=== PATIENT | male | born 1970 | race Two or more races ===

== ENCOUNTER 2017-03-02 17:41 | Emergency (ER) | payer OTHER ==
[~2017-03-02] VITALS: Ht 172.7 cm; Wt 102.5 kg
[~2017-03-02 17:41] MED LIST: OXYC-223 PO
[2017-03-02] MEDS ORDERED: HYDR30SU4 PR (18:17)
[2017-03-02] MEDS ORDERED: INSU100V13 SQ (18:17)
[2017-03-02] MEDS ORDERED: SODIUM CHLORIDE FLUSH 10ML SYR IVF ONE (19:00)
[2017-03-02 19:28] LABS: ASPARTATE AMINO TRANSFERASE 28 U/L (15-37); BLOOD UREA NITROGEN 13 mg/dL (7-18)
[2017-03-02] MEDS ORDERED: OMNIPAQUE 350 MG/ML, 100ML BOTTLE ONE (20:49)
[2017-03-02 21:49] VITALS: BP 142/102
== END 2017-03-02 21:51 | disposition home or self-care (01) ==
LOC: MERGE 19:30 → ED 19:30
DX: K62.5 Hemorrhage of anus and rectum (principal); E11.9 Type 2 diabetes mellitus without complications; I10 Essential (primary) hypertension; K21.9 Gastro-esophageal reflux disease without esophagitis
CPT/HCPCS: 36415; 74177; 80053; 85025; 99285; Q9967